=== PATIENT | male | born 1985 | race Caucasian/White ===

== ENCOUNTER 2023-10-30 10:38 | Inpatient (IN) | payer OTHER, SELFPAY ==
[2023-10-30 11:11] VITALS: BMI 38.9
[2023-10-30 11:12] VITALS: BP 128/85; PULSE 64; RESP 19; TEMP 35.7; O2SAT 97
[2023-10-30] MEDS: Nicotine Polacrilex 2 MG GUM 4 MG BUCCAL ×2 (12:01→19:29)
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
--- NOTE | 2023-10-30 12:11 | HO.PM.IMCN ---
History of Present Illness Data of Consult Service Date: 10/30/23 Primary Care Provider: Keena Allen NP HPI Reason for consult: routine medical eval 38 year old male with no chronic medical illness admitted from [facility] for management of depression and Suicidal ideation. He repots no know chronic medial issues and presently endorses no acute medical medical issues, he still feels depressed with SI. No fever or chills, no sob, no abd pain, no dizziness Review of Systems Review of Systems: Gen: no fever Resp: no sob, no cough CV: no chest, no LORA, no leg edema GI: No n/v, no abd pain Neuro: No confusion Yes all other systems are reviewed and are negative [facility] Medical History Major depression Social History Advance Directives: No Advance Directives Information Provided: Yes Meds Allergies Allergy/AdvReac Type Severity Reaction Status Date / Time No Known Allergies Allergy Verified 10/30/23 11:18 Active Medications: Current Medications Acetaminophen (Acetaminophen 325 Mg Tablet) 650 mg PO Q6H PRN PRN Reason: Headache/Pain Mild Scale (1-3) Al Hydroxide/Mg Hydroxide (Magnesium Hydrox/Alum Hydrox 30 Ml Oral.Susp) 30 ml PO Q6H PRN PRN Reason: Heartburn/Nausea Hydroxyzine HCl (Hydroxyzine Hcl 25 Mg Tablet) 25 mg PO Q6H PRN PRN Reason: Anxiety Magnesium Hydroxide (Milk Of Magnesia 30 Ml Oral.Susp) 30 ml PO DAILY PRN PRN Reason: Constipation Nicotine Polacrilex (Nicotine Polacrilex 2 Mg Gum) 4 mg BUCCAL Q2H PRN PRN Reason: Nicotine Cravings Last Admin: 10/30/23 12:01 Dose: 4 mg Trazodone HCl (Trazodone Hcl 50 Mg Tablet) 50 mg PO BEDTIME MRX1 PRN PRN Reason: Insomnia Home Medications Medication Instructions Recorded Confirmed Last Taken Type olopatadine 0.1 % eye drops 1 drp ophthalmic (eye) BID PRN Eye 10/30/23 10/30/23 Unknown History (Pataday Twice Daily Relief) Irritation Physical Exam Vital Signs and Narrative: Vital Signs: Last Vital Signs Temp 96.2 F L 10/30/23 11:12 Pulse 64 10/30/23 11:12 Resp 19 10/30/23 11:12 BP 128/85 10/30/23 11:12 Pulse Ox 97 10/30/23 11:12 O2 Del Method Room Air 10/30/23 11:12 BMI result Body Mass Index 38.9 Const: Other: Constitutional: Alert, in no distress, overweight. Mental Status: Oriented to person, place and time. Eyes: Pupils are equal, round and reactive to light. Ear, Nose and Throat: Oropharynx clear, mucous membranes moist. Ears and nose without deformities. Trachea midline. Respiratory: Clear to auscultation. No wheezing, rales or rhonchi. Cardiovascular: S1 S2 regular. No murmurs, rubs or gallops. Gastrointestinal: Abdomen soft, non-tender, non-distended. Normal bowel sounds.? Neurologic: Cranial nerves II-XII grossly intact. No focal neurological deficits. Moves all extremities spontaneously.? Skin: No rashes or lesions.? Musculoskeletal: No cyanosis or clubbing. Psychiatric: depression with si Assessment and Plan (1) Depression: Status: Acute Plan 38 year old male with no chronic medical illness admitted from [facility] for management of depression and Suicidal ideation. He repots no know chronic medial issues and presently endorses no acute medical medical issues, he still feels depressed with SI. No fever or chills, no sob, no abd pain, no dizziness. Plan: given no acute medical issues, will defer care to Psychiatry and will follow if a new issue arises
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
[2023-10-30] MEDS: hydrOXYzine HCL 25 MG TABLET PO (19:29)
[2023-10-30 19:40] VITALS: BP 178/90; PULSE 59; RESP 18; TEMP 36.2; O2SAT 98
[2023-10-30] MEDS: Acetaminophen 325 MG TABLET 650 MG PO (20:16)
[2023-10-30] MEDS: QUEtiapine Fumarate 100 MG TABLET PO (20:17)
[2023-10-30] MEDS: Prazosin HCL 1 MG CAPSULE PO (20:18)
[2023-10-31 07:45] VITALS: BP 129/66; PULSE 69; RESP 16; TEMP 36.2; O2SAT 97
[2023-10-31 08:17] LABS: Alanine Aminotransferase 25 U/L (0-40); Albumin Level 4.1 g/dL (3.5-5.0); Alkaline Phosphatase 53 U/L (39-117); Anion Gap 10 (12-20); Aspartate Amino Transferase 17 U/L (5-37); Bilirubin Total 0.4 mg/dL (0.0-1.0); Blood Urea Nitrogen 17 mg/dL (9-16); Calcium 9.6 mg/dL (8.4-10.2); Carbon Dioxide 28 mmol/L (22-29); Chloride 109 mmol/L (96-108); Cholesterol 132 mg/dL (<200); Creatinine Clr Calc Pharmacy 143.5; Estimated Glomerular Filt Rate > 60; Glucose Fasting 109 mg/dL (60-99); HDL Cholesterol 26 mg/dL (>40); LDL Cholesterol Calculated 81 mg/dL (<100); Potassium 4.3 mmol/L (3.3-5.1); Sodium 143 mmol/L (135-145); Total Protein 7.1 g/dL (6.5-8.0); Triglycerides 129 mg/dL (<150)
[2023-10-31 08:25] LABS: Estimated Average Glucose 111 mg/dL; Hemoglobin A1c % 5.5 % (<6.0)
[2023-10-31 08:34] LABS: Free T4 (Free Thyroxine) 0.97 ng/dL (0.71-1.85); Thyroid Stimulating Hormone 2.99 uIU/mL (0.32-4.0)
[2023-10-31] MEDS: DULoxetine HCl 30 MG CAPSULE.DR PO (08:47)
[2023-10-31 09:03] LABS: Folate 9.2 ng/mL (> or = 4.0); Vitamin B12 470 pg/mL (200-900)
[2023-10-31] MEDS: Acetaminophen 325 MG TABLET 650 MG PO (09:50)
[2023-10-31] MEDS: Nicotine Polacrilex 2 MG GUM 4 MG BUCCAL ×3 (09:51→20:31)
--- NOTE | 2023-10-31 10:53 | HO.PSYCHPN ---
Subjective Subjective Date of Service: 10/31/23 Reason For Visit: Major depressive disorder recurrent episode unspec Subjective Notes: Conditional Voluntary Interim History: Met with patient. Discussed with Nursing. Has been guarded and isolative at times. Today was able to express frustration regarding divorce being finalized 2 days ago. Upset regarding finances related to same, losing home and only having visitation for his 12 and 16-year-old, whom he was living with. Angry that he has been working 3 jobs to help pay all the bills and support his family. Reports finding it hard to process what has happened recently, but feeling supported by the staff and safe. Reports sleep has been much better in the hospital which is very unusual for him and he is thankful for this. Hopeful he can get support regarding potential housing resources. Reports he did speak with [facility] and upset and frustrated and feeling marginalized as he is not a woman or considered a family and therefore bottom of the list. Denies current SI. Reports hydroxyzine has been helpful for anxiety. Medication Compliance: Yes Side effects from medications: No Attending Groups: No Review of Systems Acute medical concerns: No Review of Systems Review of Systems Unremarkable Mental Status Exam Mental Status Exam Narrative: pleasant. Engaged. Hospital clothing. Fair hygiene. Eating and drinking well. Appropriate air frustrated in regarding recent stressors. Endorses feeling depressed. Denies current SI. No HI. No psychosis. Insight and judgment fair Diagnostics Vital Signs (24Hr): Vital Signs - 24 hr 10/30/23 11:12 10/30/23 19:40 10/31/23 07:45 Temperature 96.2 F L 97.1 F 97.1 F Pulse Rate 64 59 69 Respiratory Rate 19 18 16 Blood Pressure 128/85 178/90 H 129/66 Pulse Oximetry 97 98 97 Oxygen Delivery Method Room Air Room Air Room Air BMI result Body Mass Index 38.9 Labs 10/31/23 07:28 Labs: Laboratory Results - last 48 hr 10/31/23 07:28 Sodium 143 Potassium 4.3 Chloride 109 H Carbon Dioxide 28 Anion Gap 10 L BUN 17 H Creatinine 0.89 Estim Creat Clear Calc 143.5 Estimated GFR > 60 Fasting Glucose 109 H Estimat Average Glucose 111 Hemoglobin A1c % 5.5 Calcium 9.6 Total Bilirubin 0.4 AST 17 ALT 25 Alkaline Phosphatase 53 Total Protein 7.1 Albumin 4.1 Triglycerides 129 Cholesterol 132 LDL Cholesterol, Calc 81 HDL Cholesterol 26 L Vitamin B12 470 Folate 9.2 TSH 2.99 Free T4 0.97 Medications Medications Current Medications Acetaminophen (Acetaminophen 325 Mg Tablet) 650 mg PO Q6H PRN PRN Reason: Headache/Pain Mild Scale (1-3) Last Admin: 10/31/23 09:50 Dose: 650 mg Al Hydroxide/Mg Hydroxide (Magnesium Hydrox/Alum Hydrox 30 Ml Oral.Susp) 30 ml PO Q6H PRN PRN Reason: Heartburn/Nausea Capsaicin (Capsaicin 0.025% Cream 60 Gm Tube) 1 appl TOPICAL QID PRN; Protocol PRN Reason: Pain, Moderate(Pain Scale 4-6) Duloxetine HCl (Duloxetine Hcl 30 Mg Capsule.Dr) 30 mg PO DAILY GREG Last Admin: 10/31/23 08:47 Dose: 30 mg Hydroxyzine HCl (Hydroxyzine Hcl 25 Mg Tablet) 25 mg PO Q6H PRN PRN Reason: Anxiety Last Admin: 10/30/23 19:29 Dose: 25 mg Magnesium Hydroxide (Milk Of Magnesia 30 Ml Oral.Susp) 30 ml PO DAILY PRN PRN Reason: Constipation Nicotine Polacrilex (Nicotine Polacrilex 2 Mg Gum) 4 mg BUCCAL Q2H PRN PRN Reason: Nicotine Cravings Last Admin: 10/31/23 09:51 Dose: 4 mg Prazosin HCl (Prazosin Hcl 1 Mg Capsule) 2 mg PO ONCE ONE; Protocol Stop: 10/31/23 21:01 Prazosin HCl (Prazosin Hcl 1 Mg Capsule) 3 mg PO BEDTIME GREG; Protocol Quetiapine Fumarate (Quetiapine Fumarate 100 Mg Tablet) 100 mg PO BEDTIME GREG Last Admin: 10/30/23 20:17 Dose: 100 mg Quetiapine Fumarate (Quetiapine Fumarate 50 Mg Tablet) 50 mg PO BEDTIME PRN PRN Reason: insomnia Allergies Allergies Allergy/AdvReac Type Severity Reaction Status Date / Time No Known Allergies Allergy Verified 10/30/23 11:18 Assessment & Plan Assessment & Plan (1) Major depression: Status: Acute Code(s): F32.9 - Major depressive disorder, single episode, unspecified (2) PTSD (post-traumatic stress disorder): Status: Acute Code(s): F43.10 - Post-traumatic stress disorder, unspecified Plan start duloxetine for depression, anxiety, and any fringe benefit for neuropathic pain related to spinal injury. start prazosin, titrate to effective dose. seroquel 100 QHS until prazosin effective. 50 mg more PRN. 10/31/2023: No changes to current plan. Reason for continued inpatient stay Substantial Risk for: inability to function Time Spent With Patient Time: Total time managing care of this patient today ____ minutes.
[2023-10-31] MEDS: Capsaicin 0.025% Cream 60 GM TUBE 1 APPL TOPICAL (11:46)
[2023-10-31] MEDS: hydrOXYzine HCL 25 MG TABLET PO (14:56)
[2023-10-31 20:05] VITALS: BP 143/75; PULSE 98; RESP 18; TEMP 36.1; O2SAT 97
[2023-10-31] MEDS: Prazosin HCL 1 MG CAPSULE 2 MG PO (20:25)
[2023-10-31] MEDS: QUEtiapine Fumarate 100 MG TABLET PO (20:25)
[2023-10-31] MEDS: QUEtiapine Fumarate 50 MG TABLET PO (20:30)
[2023-11-01 07:30] VITALS: BP 108/57; PULSE 79; RESP 16; TEMP 36; O2SAT 94
[2023-11-01] MEDS: Nicotine Polacrilex 2 MG GUM 4 MG BUCCAL ×2 (08:46→20:14)
[2023-11-01] MEDS: DULoxetine HCl 30 MG CAPSULE.DR PO (08:46)
[2023-11-01] MEDS: hydrOXYzine HCL 25 MG TABLET PO (12:05)
--- NOTE | 2023-11-01 14:13 | HO.PSYCHPN ---
Subjective Subjective Date of Service: 11/01/23 Reason For Visit: Major depressive disorder recurrent episode unspec Subjective Notes: Conditional Voluntary Interim History: Met with patient. Discussed with Nursing. Feeling more hopeful today and less stressed. Sleep better but still broken. Still anxious with irritability. Enjoyed visit from daughter yesterday . Engaged in milieu and groups. Has been guarded and isolative at times. No SI today. Discussed increasing meds for anxiety and sleep. Medication Compliance: Yes Side effects from medications: No Attending Groups: Yes Review of Systems Acute medical concerns: No Review of Systems Review of Systems Unremarkable Yes all other systems are reviewed and are negative Mental Status Exam Mental Status Exam Narrative: pleasant. Engaged. Hospital clothing. Fair hygiene. Eating and drinking well. Brighter and less frustrated regarding recent stressors. Denies current SI. No HI. No psychosis. Insight and judgment fair Diagnostics Vital Signs (24Hr): Vital Signs - 24 hr 10/31/23 20:05 11/01/23 07:30 Temperature 96.9 F 96.8 F Pulse Rate 98 79 Respiratory Rate 18 16 Blood Pressure 143/75 H 108/57 L Pulse Oximetry 97 94 Oxygen Delivery Method Room Air Room Air BMI result Body Mass Index 38.9 Labs 10/31/23 07:28 Labs: Laboratory Results - last 48 hr 10/31/23 07:28 Sodium 143 Potassium 4.3 Chloride 109 H Carbon Dioxide 28 Anion Gap 10 L BUN 17 H Creatinine 0.89 Estim Creat Clear Calc 143.5 Estimated GFR > 60 Fasting Glucose 109 H Estimat Average Glucose 111 Hemoglobin A1c % 5.5 Calcium 9.6 Total Bilirubin 0.4 AST 17 ALT 25 Alkaline Phosphatase 53 Total Protein 7.1 Albumin 4.1 Triglycerides 129 Cholesterol 132 LDL Cholesterol, Calc 81 HDL Cholesterol 26 L Vitamin B12 470 Folate 9.2 TSH 2.99 Free T4 0.97 Medications Medications Current Medications Acetaminophen (Acetaminophen 325 Mg Tablet) 650 mg PO Q6H PRN PRN Reason: Headache/Pain Mild Scale (1-3) Last Admin: 10/31/23 09:50 Dose: 650 mg Al Hydroxide/Mg Hydroxide (Magnesium Hydrox/Alum Hydrox 30 Ml Oral.Susp) 30 ml PO Q6H PRN PRN Reason: Heartburn/Nausea Capsaicin (Capsaicin 0.025% Cream 60 Gm Tube) 1 appl TOPICAL QID PRN; Protocol PRN Reason: Pain, Moderate(Pain Scale 4-6) Last Admin: 10/31/23 11:46 Dose: 1 appl Duloxetine HCl (Duloxetine Hcl 30 Mg Capsule.Dr) 30 mg PO DAILY GREG Last Admin: 11/01/23 08:46 Dose: 30 mg Hydroxyzine HCl (Hydroxyzine Hcl 25 Mg Tablet) 25 mg PO Q6H PRN PRN Reason: Anxiety Last Admin: 11/01/23 12:05 Dose: 25 mg Magnesium Hydroxide (Milk Of Magnesia 30 Ml Oral.Susp) 30 ml PO DAILY PRN PRN Reason: Constipation Nicotine Polacrilex (Nicotine Polacrilex 2 Mg Gum) 4 mg BUCCAL Q2H PRN PRN Reason: Nicotine Cravings Last Admin: 11/01/23 08:46 Dose: 4 mg Prazosin HCl (Prazosin Hcl 1 Mg Capsule) 3 mg PO BEDTIME GREG; Protocol Quetiapine Fumarate (Quetiapine Fumarate 100 Mg Tablet) 100 mg PO BEDTIME GREG Last Admin: 10/31/23 20:25 Dose: 100 mg Quetiapine Fumarate (Quetiapine Fumarate 50 Mg Tablet) 50 mg PO BEDTIME PRN PRN Reason: insomnia Last Admin: 10/31/23 20:30 Dose: 50 mg Allergies Allergies Allergy/AdvReac Type Severity Reaction Status Date / Time No Known Allergies Allergy Verified 10/30/23 11:18 Assessment & Plan Assessment & Plan (1) Major depression: Status: Acute Code(s): F32.9 - Major depressive disorder, single episode, unspecified (2) PTSD (post-traumatic stress disorder): Status: Acute Code(s): F43.10 - Post-traumatic stress disorder, unspecified Plan start duloxetine for depression, anxiety, and any fringe benefit for neuropathic pain related to spinal injury. start prazosin, titrate to effective dose. seroquel 100 QHS until prazosin effective. 50 mg more PRN. 10/31/2023: No changes to current plan. 10/31- increase prazosin and seroquel Reason for continued inpatient stay Substantial Risk for: inability to function and rapid decompensation Time Spent With Patient Time: Total time managing care of this patient today ____ minutes.
[2023-11-01 19:40] VITALS: BP 161/92; PULSE 100; RESP 18; TEMP 36.7; O2SAT 96
[2023-11-01] MEDS: QUEtiapine Fumarate 50 MG TABLET 150 MG PO (20:13)
[2023-11-01] MEDS: Prazosin HCL 5 MG CAPSULE PO (20:13)
[2023-11-01 21:25] VITALS: BP 147/84; PULSE 130
[2023-11-01 21:30] VITALS: PULSE 125
[2023-11-01] MEDS: hydrOXYzine HCL 50 MG TABLET PO (21:31)
[2023-11-01] MEDS: QUEtiapine Fumarate 50 MG TABLET PO (23:48)
[2023-11-02 08:32] VITALS: BP 165/92; PULSE 108; RESP 16; TEMP 36.8; O2SAT 99
[2023-11-02] MEDS: DULoxetine HCl 30 MG CAPSULE.DR PO (09:16)
[2023-11-02] MEDS: hydrOXYzine HCL 50 MG TABLET PO ×2 (09:18→15:45)
[2023-11-02] MEDS: Nicotine Polacrilex 2 MG GUM 4 MG BUCCAL ×2 (14:32→23:04)
[2023-11-02] MEDS: Prazosin HCL 1 MG CAPSULE PO (15:43)
--- NOTE | 2023-11-02 17:20 | HO.PSYCHPN ---
Subjective Subjective Date of Service: 11/02/23 Reason For Visit: Major depressive disorder recurrent episode unspec Interim History: up ith nightmares repeatedly. hypertensive and anxious in the day. agrees to increase HS prazosin to 6 mg and start prazosin 1 mg daily and 1 mg daily at 3 pm. per staff, had a good visit with his daughter. dep 4, anx 5. HR 130 briefly yesterday. slept overnight. Mental Status Exam Mental Status Exam Narrative: pleasant. Engaged. Hospital clothing. Fair hygiene. Eating and drinking well. Brighter and less frustrated regarding recent stressors. Denies current SI. No HI. No psychosis. Insight and judgment fair Diagnostics Vital Signs (24Hr): Vital Signs - 24 hr 11/01/23 19:40 11/01/23 21:25 11/01/23 21:30 Temperature 98.0 F Pulse Rate 100 130 H 125 H Respiratory Rate 18 Blood Pressure 161/92 H 147/84 H Pulse Oximetry 96 Oxygen Delivery Method Room Air 11/02/23 08:32 Temperature 98.2 F Pulse Rate 108 H Respiratory Rate 16 Blood Pressure 165/92 H Pulse Oximetry 99 Oxygen Delivery Method Room Air BMI result Body Mass Index 38.9 Labs 10/31/23 07:28 Medications Medications Current Medications Acetaminophen (Acetaminophen 325 Mg Tablet) 650 mg PO Q6H PRN PRN Reason: Headache/Pain Mild Scale (1-3) Last Admin: 10/31/23 09:50 Dose: 650 mg Al Hydroxide/Mg Hydroxide (Magnesium Hydrox/Alum Hydrox 30 Ml Oral.Susp) 30 ml PO Q6H PRN PRN Reason: Heartburn/Nausea Capsaicin (Capsaicin 0.025% Cream 60 Gm Tube) 1 appl TOPICAL QID PRN; Protocol PRN Reason: Pain, Moderate(Pain Scale 4-6) Last Admin: 10/31/23 11:46 Dose: 1 appl Duloxetine HCl (Duloxetine Hcl 30 Mg Capsule.Dr) 30 mg PO DAILY GREG Last Admin: 11/02/23 09:16 Dose: 30 mg Hydroxyzine HCl (Hydroxyzine Hcl 50 Mg Tablet) 50 mg PO Q6H PRN PRN Reason: Anxiety Last Admin: 11/02/23 15:45 Dose: 50 mg Magnesium Hydroxide (Milk Of Magnesia 30 Ml Oral.Susp) 30 ml PO DAILY PRN PRN Reason: Constipation Nicotine Polacrilex (Nicotine Polacrilex 2 Mg Gum) 4 mg BUCCAL Q2H PRN PRN Reason: Nicotine Cravings Last Admin: 11/02/23 14:32 Dose: 4 mg Prazosin HCl (Prazosin Hcl 1 Mg Capsule) 6 mg PO BEDTIME GREG; Protocol Prazosin HCl (Prazosin Hcl 1 Mg Capsule) 1 mg PO BID@0900,1500 GREG; Protocol Last Admin: 11/02/23 15:43 Dose: 1 mg Quetiapine Fumarate (Quetiapine Fumarate 50 Mg Tablet) 50 mg PO BEDTIME PRN PRN Reason: insomnia Last Admin: 11/01/23 23:48 Dose: 50 mg Quetiapine Fumarate (Quetiapine Fumarate 50 Mg Tablet) 150 mg PO BEDTIME GREG Last Admin: 11/01/23 20:13 Dose: 150 mg Allergies Allergies Allergy/AdvReac Type Severity Reaction Status Date / Time No Known Allergies Allergy Verified 10/30/23 11:18 Assessment & Plan Assessment & Plan (1) Major depression: Status: Acute Code(s): F32.9 - Major depressive disorder, single episode, unspecified (2) PTSD (post-traumatic stress disorder): Status: Acute Code(s): F43.10 - Post-traumatic stress disorder, unspecified Plan start duloxetine for depression, anxiety, and any fringe benefit for neuropathic pain related to spinal injury. start prazosin, titrate to effective dose. seroquel 100 QHS until prazosin effective. 50 mg more PRN. 10/31/2023: No changes to current plan. 10/31- increase prazosin and seroquel 11/01: increase prazosin from 5 mg QHS to as of this afternoon. targeting anxiety, HTN, and nightmares/insomnia. Reason for continued inpatient stay Substantial Risk for: harm to self, harm to others, inability to function and rapid decompensation Time Spent With Patient Time: Total time managing care of this patient today ___25_ minutes.
[2023-11-02] MEDS: Capsaicin 0.025% Cream 60 GM TUBE 1 APPL TOPICAL (18:56)
[2023-11-02 22:47] VITALS: BP 134/83; PULSE 104; RESP 18; O2SAT 97
[2023-11-02] MEDS: Prazosin HCL 1 MG CAPSULE 6 MG PO (23:00)
[2023-11-02] MEDS: QUEtiapine Fumarate 50 MG TABLET 150 MG PO (23:01)
[2023-11-03] MEDS: hydrOXYzine HCL 50 MG TABLET PO ×2 (00:26→11:03)
[2023-11-03] MEDS: QUEtiapine Fumarate 50 MG TABLET PO ×2 (00:27→22:44)
[2023-11-03 08:18] VITALS: BP 142/75; PULSE 97; RESP 18; TEMP 36.3; O2SAT 97
[2023-11-03] MEDS: DULoxetine HCl 30 MG CAPSULE.DR PO (08:45)
[2023-11-03] MEDS: Prazosin HCL 1 MG CAPSULE PO ×2 (08:45→14:00)
[2023-11-03] MEDS: Nicotine Polacrilex 2 MG GUM 4 MG BUCCAL ×2 (09:50→14:00)
[2023-11-03 14:00] VITALS: BP 131/80; PULSE 105; RESP 18
--- NOTE | 2023-11-03 15:55 | HO.PSYCHPN ---
Subjective Subjective Date of Service: 11/03/23 Reason For Visit: Major depressive disorder recurrent episode unspec Interim History: continues with nightmares and insomnia. agrees to increase prazosin to 8 mg. planning to return to the house he shares with his , temporarily, then move out. per staff, dep/anx 10. labile. visible. taking meds. attending groups. slept about 6 hours. Mental Status Exam Mental Status Exam Narrative: pleasant. Engaged. Hospital clothing. Fair hygiene. Eating and drinking well. Brighter and less frustrated regarding recent stressors. no SI/HI/AVH expressed. Insight and judgment fair Diagnostics Vital Signs (24Hr): Vital Signs - 24 hr 11/02/23 22:47 11/03/23 08:18 11/03/23 14:00 Temperature 97.3 F Pulse Rate 104 H 97 105 H Respiratory Rate 18 18 18 Blood Pressure 134/83 142/75 H 131/80 Pulse Oximetry 97 97 Oxygen Delivery Method Room Air Room Air BMI result Body Mass Index 38.9 Labs 10/31/23 07:28 Medications Medications Current Medications Acetaminophen (Acetaminophen 325 Mg Tablet) 650 mg PO Q6H PRN PRN Reason: Headache/Pain Mild Scale (1-3) Last Admin: 10/31/23 09:50 Dose: 650 mg Al Hydroxide/Mg Hydroxide (Magnesium Hydrox/Alum Hydrox 30 Ml Oral.Susp) 30 ml PO Q6H PRN PRN Reason: Heartburn/Nausea Capsaicin (Capsaicin 0.025% Cream 60 Gm Tube) 1 appl TOPICAL QID PRN; Protocol PRN Reason: Pain, Moderate(Pain Scale 4-6) Last Admin: 11/02/23 18:56 Dose: 1 appl Duloxetine HCl (Duloxetine Hcl 30 Mg Capsule.Dr) 30 mg PO DAILY GREG Last Admin: 11/03/23 08:45 Dose: 30 mg Hydroxyzine HCl (Hydroxyzine Hcl 50 Mg Tablet) 50 mg PO Q6H PRN PRN Reason: Anxiety Last Admin: 11/03/23 11:03 Dose: 50 mg Magnesium Hydroxide (Milk Of Magnesia 30 Ml Oral.Susp) 30 ml PO DAILY PRN PRN Reason: Constipation Nicotine Polacrilex (Nicotine Polacrilex 2 Mg Gum) 4 mg BUCCAL Q2H PRN PRN Reason: Nicotine Cravings Last Admin: 11/03/23 14:00 Dose: 4 mg Prazosin HCl (Prazosin Hcl 1 Mg Capsule) 1 mg PO BID@0900,1500 GREG; Protocol Last Admin: 11/03/23 14:00 Dose: 1 mg Prazosin HCl (Prazosin Hcl 1 Mg Capsule) 8 mg PO BEDTIME GREG; Protocol Quetiapine Fumarate (Quetiapine Fumarate 50 Mg Tablet) 50 mg PO BEDTIME PRN PRN Reason: insomnia Last Admin: 11/03/23 00:27 Dose: 50 mg Quetiapine Fumarate (Quetiapine Fumarate 50 Mg Tablet) 150 mg PO BEDTIME GREG Last Admin: 11/02/23 23:01 Dose: 150 mg Allergies Allergies Allergy/AdvReac Type Severity Reaction Status Date / Time No Known Allergies Allergy Verified 10/30/23 11:18 Assessment & Plan Assessment & Plan (1) Major depression: Status: Acute Code(s): F32.9 - Major depressive disorder, single episode, unspecified (2) PTSD (post-traumatic stress disorder): Status: Acute Code(s): F43.10 - Post-traumatic stress disorder, unspecified Plan start duloxetine for depression, anxiety, and any fringe benefit for neuropathic pain related to spinal injury. start prazosin, titrate to effective dose. seroquel 100 QHS until prazosin effective. 50 mg more PRN. 10/31/2023: No changes to current plan. 10/31- increase prazosin and seroquel 11/01: increase prazosin from 5 mg QHS to as of this afternoon. targeting anxiety, HTN, and nightmares/insomnia. 11/02: increase prazosin from to due to nightmares/insomnia. daytime doses reported to be helpful for anxiety. Reason for continued inpatient stay Substantial Risk for: harm to self, inability to function and rapid decompensation Time Spent With Patient Time: Total time managing care of this patient today __25__ minutes.
[2023-11-03 21:30] VITALS: BP 153/77; PULSE 104; RESP 18; TEMP -13.6; TEMP 7.5; O2SAT 97
[2023-11-03] MEDS: QUEtiapine Fumarate 50 MG TABLET 150 MG PO (21:40)
[2023-11-03] MEDS: Prazosin HCL 1 MG CAPSULE 8 MG PO (21:40)
[2023-11-04 08:51] VITALS: BP 127/77; PULSE 103; RESP 16; TEMP 36.3; O2SAT 96
[2023-11-04] MEDS: DULoxetine HCl 30 MG CAPSULE.DR PO (09:04)
[2023-11-04] MEDS: Prazosin HCL 1 MG CAPSULE PO ×2 (09:04→15:33)
[2023-11-04] MEDS: hydrOXYzine HCL 50 MG TABLET PO (10:03)
[2023-11-04] MEDS: Nicotine Polacrilex 2 MG GUM 4 MG BUCCAL ×2 (10:04→17:48)
[2023-11-04 12:53] LABS: Influenza A PCR NEGATIVE (Negative); Influenza B PCR NEGATIVE (Negative); Resp Syncy Virus RNA Qual PCR NEGATIVE (Negative); SARS COV2 PCR INHOUSE NEGATIVE (Negative)
[2023-11-04 15:34] VITALS: BP 129/82; PULSE 95; RESP 18
--- NOTE | 2023-11-04 15:42 | HO.PSYCHPN ---
Subjective Subjective Date of Service: 11/04/23 Reason For Visit: Major depressive disorder recurrent episode unspec Interim History: calm, cooperative. reports daytime anxiety improved with meds, declines any changes there. reports still nightmares and insomnia in second half of night but not first. agreeable to increase prazosin to 10 mg QHS as of tonight. per staff, bright, social. playing cards. dep/anx. visible. watching TV. slept about 7 hours. Mental Status Exam Mental Status Exam Narrative: pleasant. Engaged. Hospital clothing. Fair hygiene. Eating and drinking well. Brighter and less frustrated regarding recent stressors. no SI/HI/AVH expressed. Insight and judgment fair Diagnostics Vital Signs (24Hr): Vital Signs - 24 hr 11/03/23 21:30 11/04/23 08:51 11/04/23 15:34 Temperature 7.5 F L 97.3 F Pulse Rate 104 H 103 H 95 Respiratory Rate 18 16 18 Blood Pressure 153/77 H 127/77 129/82 Pulse Oximetry 97 96 Oxygen Delivery Method Room Air Room Air BMI result Body Mass Index 38.9 Labs 10/31/23 07:28 Labs: Laboratory Results - last 48 hr 11/04/23 11:31 Influenza Type A (PCR) NEGATIVE Influenza Type B (PCR) NEGATIVE RSV RNA Qual (PCR) NEGATIVE SARS-CoV-2 RNA (RT-PCR) NEGATIVE Medications Medications Current Medications Acetaminophen (Acetaminophen 325 Mg Tablet) 650 mg PO Q6H PRN PRN Reason: Headache/Pain Mild Scale (1-3) Last Admin: 10/31/23 09:50 Dose: 650 mg Al Hydroxide/Mg Hydroxide (Magnesium Hydrox/Alum Hydrox 30 Ml Oral.Susp) 30 ml PO Q6H PRN PRN Reason: Heartburn/Nausea Capsaicin (Capsaicin 0.025% Cream 60 Gm Tube) 1 appl TOPICAL QID PRN; Protocol PRN Reason: Pain, Moderate(Pain Scale 4-6) Last Admin: 11/02/23 18:56 Dose: 1 appl Duloxetine HCl (Duloxetine Hcl 30 Mg Capsule.Dr) 30 mg PO DAILY GREG Last Admin: 11/04/23 09:04 Dose: 30 mg Hydroxyzine HCl (Hydroxyzine Hcl 50 Mg Tablet) 50 mg PO Q6H PRN PRN Reason: Anxiety Last Admin: 11/04/23 10:03 Dose: 50 mg Magnesium Hydroxide (Milk Of Magnesia 30 Ml Oral.Susp) 30 ml PO DAILY PRN PRN Reason: Constipation Nicotine Polacrilex (Nicotine Polacrilex 2 Mg Gum) 4 mg BUCCAL Q2H PRN PRN Reason: Nicotine Cravings Last Admin: 11/04/23 10:04 Dose: 4 mg Prazosin HCl (Prazosin Hcl 1 Mg Capsule) 1 mg PO BID@0900,1500 GREG; Protocol Last Admin: 11/04/23 15:33 Dose: 1 mg Prazosin HCl (Prazosin Hcl 5 Mg Capsule) 10 mg PO BEDTIME GREG; Protocol Quetiapine Fumarate (Quetiapine Fumarate 50 Mg Tablet) 50 mg PO BEDTIME PRN PRN Reason: insomnia Last Admin: 11/03/23 22:44 Dose: 50 mg Quetiapine Fumarate (Quetiapine Fumarate 50 Mg Tablet) 150 mg PO BEDTIME GREG Last Admin: 11/03/23 21:40 Dose: 150 mg Allergies Allergies Allergy/AdvReac Type Severity Reaction Status Date / Time No Known Allergies Allergy Verified 10/30/23 11:18 Assessment & Plan Assessment & Plan (1) Major depression: Status: Acute Code(s): F32.9 - Major depressive disorder, single episode, unspecified (2) PTSD (post-traumatic stress disorder): Status: Acute Code(s): F43.10 - Post-traumatic stress disorder, unspecified Plan start duloxetine for depression, anxiety, and any fringe benefit for neuropathic pain related to spinal injury. start prazosin, titrate to effective dose. seroquel 100 QHS until prazosin effective. 50 mg more PRN. 10/31/2023: No changes to current plan. 10/31- increase prazosin and seroquel 11/01: increase prazosin from 5 mg QHS to as of this afternoon. targeting anxiety, HTN, and nightmares/insomnia. 11/02: increase prazosin from to due to nightmares/insomnia. daytime doses reported to be helpful for anxiety. 11/03: daytime anxiety improved. nightmares continue. increase HS prazosin to 10 mg. otherwise continue current mgmt. Reason for continued inpatient stay Substantial Risk for: harm to self, harm to others, inability to function and rapid decompensation Time Spent With Patient Time: Total time managing care of this patient today __25__ minutes.
[2023-11-04 19:25] VITALS: BP 156/86; PULSE 98; RESP 18; TEMP 37.1; O2SAT 98
[2023-11-04] MEDS: Prazosin HCL 5 MG CAPSULE 10 MG PO (21:35)
[2023-11-04] MEDS: QUEtiapine Fumarate 50 MG TABLET 150 MG PO (21:36)
[2023-11-04] MEDS: QUEtiapine Fumarate 50 MG TABLET PO (23:20)
[2023-11-05 07:00] VITALS: BMI 39.8
[2023-11-05 07:50] VITALS: BP 135/84; PULSE 87; RESP 16; TEMP 36.4; O2SAT 96
[2023-11-05] MEDS: Prazosin HCL 1 MG CAPSULE PO ×2 (08:46→15:14)
[2023-11-05] MEDS: DULoxetine HCl 30 MG CAPSULE.DR PO (08:46)
[2023-11-05] MEDS: Nicotine Polacrilex 2 MG GUM 4 MG BUCCAL ×2 (11:56→19:19)
[2023-11-05] MEDS: hydrOXYzine HCL 50 MG TABLET PO ×2 (15:14→21:43)
[2023-11-05 15:16] VITALS: BP 143/89; PULSE 104
--- NOTE | 2023-11-05 15:48 | HO.PSYCHPN ---
Subjective Subjective Date of Service: 11/05/23 Reason For Visit: Major depressive disorder recurrent episode unspec Interim History: calm, cooperative. slept well, few/minimal nightmares. no sife effects from medications. increase cymbalta to 60 as per dosing guidelines. per staff, signed 3-day notice, up thursday. little dep/anx. attended 1 group. tending to ADLs. taking medications. social. visible. pleasant. slept about 6 hours. D/C thursday. Mental Status Exam Mental Status Exam Narrative: pleasant. Engaged. Hospital clothing. Fair hygiene. Eating and drinking well. Brighter and less frustrated regarding recent stressors. no SI/HI/AVH expressed. Insight and judgment fair Diagnostics Vital Signs (24Hr): Vital Signs - 24 hr 11/04/23 19:25 11/05/23 07:50 11/05/23 15:16 Temperature 98.7 F 97.5 F Pulse Rate 98 87 104 H Respiratory Rate 18 16 Blood Pressure 156/86 H 135/84 143/89 H Pulse Oximetry 98 96 Oxygen Delivery Method Room Air Room Air BMI result Body Mass Index 39.8 Labs 10/31/23 07:28 Labs: Laboratory Results - last 48 hr 11/04/23 11:31 Influenza Type A (PCR) NEGATIVE Influenza Type B (PCR) NEGATIVE RSV RNA Qual (PCR) NEGATIVE SARS-CoV-2 RNA (RT-PCR) NEGATIVE Medications Medications Current Medications Acetaminophen (Acetaminophen 325 Mg Tablet) 650 mg PO Q6H PRN PRN Reason: Headache/Pain Mild Scale (1-3) Last Admin: 10/31/23 09:50 Dose: 650 mg Al Hydroxide/Mg Hydroxide (Magnesium Hydrox/Alum Hydrox 30 Ml Oral.Susp) 30 ml PO Q6H PRN PRN Reason: Heartburn/Nausea Capsaicin (Capsaicin 0.025% Cream 60 Gm Tube) 1 appl TOPICAL QID PRN; Protocol PRN Reason: Pain, Moderate(Pain Scale 4-6) Last Admin: 11/02/23 18:56 Dose: 1 appl Duloxetine HCl (Duloxetine Hcl 60 Mg Capsule.Dr) 60 mg PO DAILY GREG Hydroxyzine HCl (Hydroxyzine Hcl 50 Mg Tablet) 50 mg PO Q6H PRN PRN Reason: Anxiety Last Admin: 11/05/23 15:14 Dose: 50 mg Magnesium Hydroxide (Milk Of Magnesia 30 Ml Oral.Susp) 30 ml PO DAILY PRN PRN Reason: Constipation Nicotine Polacrilex (Nicotine Polacrilex 2 Mg Gum) 4 mg BUCCAL Q2H PRN PRN Reason: Nicotine Cravings Last Admin: 11/05/23 11:56 Dose: 4 mg Prazosin HCl (Prazosin Hcl 1 Mg Capsule) 1 mg PO BID@0900,1500 GREG; Protocol Last Admin: 11/05/23 15:14 Dose: 1 mg Prazosin HCl (Prazosin Hcl 5 Mg Capsule) 10 mg PO BEDTIME GREG; Protocol Last Admin: 11/04/23 21:35 Dose: 10 mg Quetiapine Fumarate (Quetiapine Fumarate 50 Mg Tablet) 50 mg PO BEDTIME PRN PRN Reason: insomnia Last Admin: 11/04/23 23:20 Dose: 50 mg Quetiapine Fumarate (Quetiapine Fumarate 200 Mg Tablet) 200 mg PO BEDTIME GREG Allergies Allergies Allergy/AdvReac Type Severity Reaction Status Date / Time No Known Allergies Allergy Verified 10/30/23 11:18 Assessment & Plan Assessment & Plan (1) Major depression: Status: Acute Code(s): F32.9 - Major depressive disorder, single episode, unspecified (2) PTSD (post-traumatic stress disorder): Status: Acute Code(s): F43.10 - Post-traumatic stress disorder, unspecified Plan start duloxetine for depression, anxiety, and any fringe benefit for neuropathic pain related to spinal injury. start prazosin, titrate to effective dose. seroquel 100 QHS until prazosin effective. 50 mg more PRN. 10/31/2023: No changes to current plan. 10/31- increase prazosin and seroquel 11/01: increase prazosin from 5 mg QHS to 1//6 as of this afternoon. targeting anxiety, HTN, and nightmares/insomnia. 11/02: increase prazosin from to due to nightmares/insomnia. daytime doses reported to be helpful for anxiety. 11/03: daytime anxiety improved. nightmares continue. increase HS prazosin to 10 mg. otherwise continue current mgmt. 11/04: slept well, few/minimal nightmares. increase duloxetine to 60 mg for dep/anx. otherwise continue current mgmt. 3-day up thursday, planning to discharge thursday. Reason for continued inpatient stay Substantial Risk for: harm to self, harm to others, inability to function and rapid decompensation Time Spent With Patient Time: Total time managing care of this patient today __25__ minutes.
[2023-11-05 21:30] VITALS: BP 150/80; PULSE 95; RESP 18; TEMP 36.6; O2SAT 97
[2023-11-05] MEDS: Prazosin HCL 5 MG CAPSULE 10 MG PO (21:42)
[2023-11-05] MEDS: QUEtiapine Fumarate 50 MG TABLET PO (21:43)
[2023-11-05] MEDS: QUEtiapine Fumarate 200 MG TABLET PO (21:43)
[2023-11-06 08:05] VITALS: BP 129/74; PULSE 86; RESP 16; TEMP 36.2; O2SAT 96
[2023-11-06] MEDS: DULoxetine HCl 60 MG CAPSULE.DR PO (09:03)
[2023-11-06] MEDS: Prazosin HCL 1 MG CAPSULE PO ×2 (09:03→14:54)
[2023-11-06] MEDS: Nicotine Polacrilex 2 MG GUM 4 MG BUCCAL ×2 (10:05→14:54)
[2023-11-06 10:14] LABS: COVID-19 Test Negative (Negative); IDNOW Serial# 08D9AD1C
[2023-11-06] MEDS: hydrOXYzine HCL 50 MG TABLET PO (12:08)
[2023-11-06] MEDS: LORazepam 1 MG TABLET 2 MG PO (13:58)
[2023-11-06 15:30] VITALS: BP 148/84; PULSE 118; O2SAT 94
--- NOTE | 2023-11-06 16:05 | P.PNPSI_ITS ---
Subjective Subjective Date of Service: 11/06/23 Reason For Visit: Major depressive disorder recurrent episode unspec Interim History: reports slept very well. no issues. would like to keep regimen as it is. per staff, 3-day up thursday, will DC then. slept 8 hours. anxious. Mental Status Exam Mental Status Exam Narrative: pleasant. Engaged. Hospital clothing. Fair hygiene. Eating and drinking well. Brighter and less frustrated regarding recent stressors. no SI/HI/AVH expressed. Insight and judgment fair Diagnostics Vital Signs (24Hr): Vital Signs - 24 hr 11/05/23 21:30 11/06/23 08:05 Temperature 97.8 F 97.1 F Pulse Rate 95 86 Respiratory Rate 18 16 Blood Pressure 150/80 H 129/74 Pulse Oximetry 97 96 Oxygen Delivery Method Room Air Room Air BMI result Body Mass Index 39.8 Labs 10/31/23 07:28 Labs: Laboratory Results - last 48 hr 11/06/23 09:10 COVID-19 ([facility]) Negative COVID-19 Clin Com See Note Medications Medications Current Medications Acetaminophen (Acetaminophen 325 Mg Tablet) 650 mg PO Q6H PRN PRN Reason: Headache/Pain Mild Scale (1-3) Last Admin: 10/31/23 09:50 Dose: 650 mg Al Hydroxide/Mg Hydroxide (Magnesium Hydrox/Alum Hydrox 30 Ml Oral.Susp) 30 ml PO Q6H PRN PRN Reason: Heartburn/Nausea Capsaicin (Capsaicin 0.025% Cream 60 Gm Tube) 1 appl TOPICAL QID PRN; Protocol PRN Reason: Pain, Moderate(Pain Scale 4-6) Last Admin: 11/02/23 18:56 Dose: 1 appl Duloxetine HCl (Duloxetine Hcl 60 Mg Capsule.Dr) 60 mg PO DAILY GREG Last Admin: 11/06/23 09:03 Dose: 60 mg Hydroxyzine HCl (Hydroxyzine Hcl 50 Mg Tablet) 50 mg PO Q6H PRN PRN Reason: Anxiety Last Admin: 11/06/23 12:08 Dose: 50 mg Magnesium Hydroxide (Milk Of Magnesia 30 Ml Oral.Susp) 30 ml PO DAILY PRN PRN Reason: Constipation Nicotine Polacrilex (Nicotine Polacrilex 2 Mg Gum) 4 mg BUCCAL Q2H PRN PRN Reason: Nicotine Cravings Last Admin: 11/06/23 14:54 Dose: 4 mg Prazosin HCl (Prazosin Hcl 1 Mg Capsule) 1 mg PO BID@0900,1500 [facility]; Protocol Last Admin: 11/06/23 14:54 Dose: 1 mg Prazosin HCl (Prazosin Hcl 5 Mg Capsule) 10 mg PO BEDTIME GREG; Protocol Last Admin: 11/05/23 21:42 Dose: 10 mg Quetiapine Fumarate (Quetiapine Fumarate 50 Mg Tablet) 50 mg PO BEDTIME PRN PRN Reason: insomnia Last Admin: 11/05/23 21:43 Dose: 50 mg Quetiapine Fumarate (Quetiapine Fumarate 200 Mg Tablet) 200 mg PO BEDTIME GREG Last Admin: 11/05/23 21:43 Dose: 200 mg Allergies Allergies Allergy/AdvReac Type Severity Reaction Status Date / Time No Known Allergies Allergy Verified 10/30/23 11:18 Assessment & Plan Assessment & Plan (1) Major depression: Status: Acute Code(s): F32.9 - Major depressive disorder, single episode, unspecified (2) PTSD (post-traumatic stress disorder): Status: Acute Code(s): F43.10 - Post-traumatic stress disorder, unspecified Plan start duloxetine for depression, anxiety, and any fringe benefit for neuropathic pain related to spinal injury. start prazosin, titrate to effective dose. seroquel 100 QHS until prazosin effective. 50 mg more PRN. 10/31/2023: No changes to current plan. 10/31- increase prazosin and seroquel 11/01: increase prazosin from 5 mg QHS to 1/6 as of this afternoon. targeting anxiety, HTN, and nightmares/insomnia. 11/02: increase prazosin from to due to nightmares/insomnia. daytime doses reported to be helpful for anxiety. 11/03: daytime anxiety improved. nightmares continue. increase HS prazosin to 10 mg. otherwise continue current mgmt. 11/04: slept well, few/minimal nightmares. increase duloxetine to 60 mg for dep/anx. otherwise continue current mgmt. 3-day up thursday, planning to discharge thursday. 11/05: slept well, no c/o nightmares. continue current mgmt. DC thursday, upon 3-day notice expiry. Reason for continued inpatient stay Substantial Risk for: harm to self, harm to others, inability to function and rapid decompensation Time Spent With Patient Time: Total time managing care of this patient today __25__ minutes.
[2023-11-06 19:50] VITALS: BP 141/82; PULSE 114; RESP 18; TEMP 36.8; O2SAT 97
[2023-11-06] MEDS: Prazosin HCL 5 MG CAPSULE 10 MG PO (21:29)
[2023-11-06] MEDS: QUEtiapine Fumarate 200 MG TABLET PO (21:29)
[2023-11-06 21:30] VITALS: BP 153/88; PULSE 104
[2023-11-06] MEDS: QUEtiapine Fumarate 50 MG TABLET PO (22:44)
[2023-11-07 06:00] VITALS: BP 128/61; PULSE 83; RESP 14; TEMP 36.4; O2SAT 98
[2023-11-07] MEDS: Prazosin HCL 1 MG CAPSULE PO ×2 (08:40→14:33)
[2023-11-07] MEDS: DULoxetine HCl 60 MG CAPSULE.DR PO (08:40)
[2023-11-07 08:50] VITALS: BP 145/97; PULSE 115; RESP 18; TEMP 36.6; O2SAT 97
[2023-11-07] MEDS: Nicotine Polacrilex 2 MG GUM 4 MG BUCCAL ×3 (11:10→21:01)
[2023-11-07] MEDS: LORazepam 1 MG TABLET 2 MG PO (11:32)
--- NOTE | 2023-11-07 11:50 | HO.PSYCHPN ---
Subjective Subjective Date of Service: 11/07/23 Reason For Visit: Major depressive disorder recurrent episode unspec Subjective Notes: Conditional Voluntary Interim History: Pt reports doing well. He reports mood is better. Peer has been instigating pt, and pt has been trying to stay away from this other pt. He denies SI/HI. No psychosis or delusions. No behavioral concern. Review of Systems Review of Systems Unremarkable Yes all other systems are reviewed and are negative Mental Status Exam Mental Status Exam Narrative: pleasant. Engaged. Hospital clothing. Fair hygiene. Eating and drinking well. Brighter and less frustrated regarding recent stressors. no SI/HI/AVH expressed. Insight and judgment fair Diagnostics Vital Signs (24Hr): Vital Signs - 24 hr 11/06/23 15:30 11/06/23 19:50 11/06/23 21:30 Temperature 98.2 F Pulse Rate 118 H 114 H 104 H Respiratory Rate 18 Blood Pressure 148/84 H 141/82 H 153/88 H Pulse Oximetry 94 97 Oxygen Delivery Method Room Air Room Air 11/07/23 06:00 Temperature 97.5 F Pulse Rate 83 Respiratory Rate 14 Blood Pressure 128/61 Pulse Oximetry 98 Oxygen Delivery Method Room Air BMI result Body Mass Index 39.8 Labs 10/31/23 07:28 Labs: Laboratory Results - last 48 hr 11/06/23 09:10 COVID-19 ([facility]) Negative COVID-19 Clin Com See Note Medications Medications Current Medications Acetaminophen (Acetaminophen 325 Mg Tablet) 650 mg PO Q6H PRN PRN Reason: Headache/Pain Mild Scale (1-3) Last Admin: 10/31/23 09:50 Dose: 650 mg Al Hydroxide/Mg Hydroxide (Magnesium Hydrox/Alum Hydrox 30 Ml Oral.Susp) 30 ml PO Q6H PRN PRN Reason: Heartburn/Nausea Capsaicin (Capsaicin 0.025% Cream 60 Gm Tube) 1 appl TOPICAL QID PRN; Protocol PRN Reason: Pain, Moderate(Pain Scale 4-6) Last Admin: 11/02/23 18:56 Dose: 1 appl Duloxetine HCl (Duloxetine Hcl 60 Mg Capsule.Dr) 60 mg PO DAILY GREG Last Admin: 11/07/23 08:40 Dose: 60 mg Hydroxyzine HCl (Hydroxyzine Hcl 50 Mg Tablet) 50 mg PO Q6H PRN PRN Reason: Anxiety Last Admin: 11/06/23 12:08 Dose: 50 mg Magnesium Hydroxide (Milk Of Magnesia 30 Ml Oral.Susp) 30 ml PO DAILY PRN PRN Reason: Constipation Nicotine Polacrilex (Nicotine Polacrilex 2 Mg Gum) 4 mg BUCCAL Q2H PRN PRN Reason: Nicotine Cravings Last Admin: 11/07/23 11:10 Dose: 4 mg Prazosin HCl (Prazosin Hcl 1 Mg Capsule) 1 mg PO BID@0900,1500 GREG; Protocol Last Admin: 11/07/23 08:40 Dose: 1 mg Prazosin HCl (Prazosin Hcl 5 Mg Capsule) 10 mg PO BEDTIME GREG; Protocol Last Admin: 11/06/23 21:29 Dose: 10 mg Quetiapine Fumarate (Quetiapine Fumarate 50 Mg Tablet) 50 mg PO BEDTIME PRN PRN Reason: insomnia Last Admin: 11/06/23 22:44 Dose: 50 mg Quetiapine Fumarate (Quetiapine Fumarate 200 Mg Tablet) 200 mg PO BEDTIME GREG Last Admin: 11/06/23 21:29 Dose: 200 mg Allergies Allergies Allergy/AdvReac Type Severity Reaction Status Date / Time No Known Allergies Allergy Verified 10/30/23 11:18 Assessment & Plan Assessment & Plan (1) Major depression: Status: Acute Code(s): F32.9 - Major depressive disorder, single episode, unspecified (2) PTSD (post-traumatic stress disorder): Status: Acute Code(s): F43.10 - Post-traumatic stress disorder, unspecified Plan start duloxetine for depression, anxiety, and any fringe benefit for neuropathic pain related to spinal injury. start prazosin, titrate to effective dose. seroquel 100 QHS until prazosin effective. 50 mg more PRN. 10/31/2023: No changes to current plan. 10/31- increase prazosin and seroquel 11/01: increase prazosin from 5 mg QHS to 6 as of this afternoon. targeting anxiety, HTN, and nightmares/insomnia. 11/02: increase prazosin from to due to nightmares/insomnia. daytime doses reported to be helpful for anxiety. 11/03: daytime anxiety improved. nightmares continue. increase HS prazosin to 10 mg. otherwise continue current mgmt. 11/04: slept well, few/minimal nightmares. increase duloxetine to 60 mg for dep/anx. otherwise continue current mgmt. 3-day up thursday, planning to discharge thursday. 11/05: slept well, no c/o nightmares. continue current mgmt. DC thursday, upon 3-day notice expiry. 11/06 continue tx Reason for continued inpatient stay Substantial Risk for: stable for discharge Time Spent With Patient Time: Total time managing care of this patient today ____ minutes.
[2023-11-07 14:30] VITALS: BP 154/91; PULSE 105
[2023-11-07] MEDS: hydrOXYzine HCL 50 MG TABLET PO (14:37)
[2023-11-07] MEDS: Prazosin HCL 5 MG CAPSULE 10 MG PO (21:00)
[2023-11-07] MEDS: QUEtiapine Fumarate 200 MG TABLET PO (23:08)
[2023-11-07] MEDS: QUEtiapine Fumarate 50 MG TABLET PO (23:08)
[2023-11-08 09:55] VITALS: BP 141/86; PULSE 111; RESP 18; TEMP 36.8; O2SAT 98
[2023-11-08] MEDS: Prazosin HCL 1 MG CAPSULE PO ×2 (09:56→14:06)
[2023-11-08] MEDS: DULoxetine HCl 60 MG CAPSULE.DR PO (09:56)
[2023-11-08 14:03] VITALS: BP 142/83; PULSE 110
[2023-11-08] MEDS: Nicotine Polacrilex 2 MG GUM 4 MG BUCCAL ×2 (14:06→20:12)
[2023-11-08] MEDS: hydrOXYzine HCL 50 MG TABLET PO (14:06)
[2023-11-08 19:50] VITALS: BP 171/112; PULSE 119; RESP 18; TEMP 36.8; O2SAT 98
--- NOTE | 2023-11-08 20:09 | HO.PSYCHPN ---
Subjective Subjective Date of Service: 11/08/23 Reason For Visit: Major depressive disorder recurrent episode unspec Subjective Notes: Conditional Voluntary Interim History: Pt reports doing well. He reports mood is better. Peer has been instigating pt, and pt has been trying to stay away from this other pt. He denies SI/HI. No psychosis or delusions. No behavioral concern. Review of Systems Review of Systems Unremarkable Yes all other systems are reviewed and are negative Mental Status Exam Mental Status Exam Narrative: pleasant. Engaged. Hospital clothing. Fair hygiene. Eating and drinking well. Brighter and less frustrated regarding recent stressors. no SI/HI/AVH expressed. Insight and judgment fair Diagnostics Vital Signs (24Hr): Vital Signs - 24 hr 11/08/23 09:55 11/08/23 14:03 11/08/23 19:50 Temperature 98.2 F 98.2 F Pulse Rate 111 H 110 H 119 H Respiratory Rate 18 18 Blood Pressure 141/86 H 142/83 H 171/112 H Pulse Oximetry 98 98 Oxygen Delivery Method Room Air Room Air BMI result Body Mass Index 39.8 Labs 10/31/23 07:28 Medications Medications Current Medications Acetaminophen (Acetaminophen 325 Mg Tablet) 650 mg PO Q6H PRN PRN Reason: Headache/Pain Mild Scale (1-3) Last Admin: 10/31/23 09:50 Dose: 650 mg Al Hydroxide/Mg Hydroxide (Magnesium Hydrox/Alum Hydrox 30 Ml Oral.Susp) 30 ml PO Q6H PRN PRN Reason: Heartburn/Nausea Capsaicin (Capsaicin 0.025% Cream 60 Gm Tube) 1 appl TOPICAL QID PRN; Protocol PRN Reason: Pain, Moderate(Pain Scale 4-6) Last Admin: 11/02/23 18:56 Dose: 1 appl Duloxetine HCl (Duloxetine Hcl 60 Mg Capsule.Dr) 60 mg PO DAILY GREG Last Admin: 11/08/23 09:56 Dose: 60 mg Hydroxyzine HCl (Hydroxyzine Hcl 50 Mg Tablet) 50 mg PO Q6H PRN PRN Reason: Anxiety Last Admin: 11/08/23 14:06 Dose: 50 mg Magnesium Hydroxide (Milk Of Magnesia 30 Ml Oral.Susp) 30 ml PO DAILY PRN PRN Reason: Constipation Nicotine Polacrilex (Nicotine Polacrilex 2 Mg Gum) 4 mg BUCCAL Q2H PRN PRN Reason: Nicotine Cravings Last Admin: 11/08/23 14:06 Dose: 4 mg Prazosin HCl (Prazosin Hcl 1 Mg Capsule) 1 mg PO BID@0900,1500 GREG; Protocol Last Admin: 11/08/23 14:06 Dose: 1 mg Prazosin HCl (Prazosin Hcl 5 Mg Capsule) 10 mg PO BEDTIME GREG; Protocol Last Admin: 11/07/23 21:00 Dose: 10 mg Quetiapine Fumarate (Quetiapine Fumarate 50 Mg Tablet) 50 mg PO BEDTIME PRN PRN Reason: insomnia Last Admin: 11/07/23 23:08 Dose: 50 mg Quetiapine Fumarate (Quetiapine Fumarate 200 Mg Tablet) 200 mg PO BEDTIME GREG Last Admin: 11/07/23 23:08 Dose: 200 mg Allergies Allergies Allergy/AdvReac Type Severity Reaction Status Date / Time No Known Allergies Allergy Verified 10/30/23 11:18 Assessment & Plan Assessment & Plan (1) Major depression: Status: Acute Code(s): F32.9 - Major depressive disorder, single episode, unspecified (2) PTSD (post-traumatic stress disorder): Status: Acute Code(s): F43.10 - Post-traumatic stress disorder, unspecified Plan start duloxetine for depression, anxiety, and any fringe benefit for neuropathic pain related to spinal injury. start prazosin, titrate to effective dose. seroquel 100 QHS until prazosin effective. 50 mg more PRN. 10/31/2023: No changes to current plan. 10/31- increase prazosin and seroquel 11/01: increase prazosin from 5 mg QHS to 6 as of this afternoon. targeting anxiety, HTN, and nightmares/insomnia. 11/02: increase prazosin from to due to nightmares/insomnia. daytime doses reported to be helpful for anxiety. 11/03: daytime anxiety improved. nightmares continue. increase HS prazosin to 10 mg. otherwise continue current mgmt. 11/04: slept well, few/minimal nightmares. increase duloxetine to 60 mg for dep/anx. otherwise continue current mgmt. 3-day up thursday, planning to discharge thursday. 11/05: slept well, no c/o nightmares. continue current mgmt. DC thursday, upon 3-day notice expiry. 11/06 continue tx 11/07 continue tx Reason for continued inpatient stay Substantial Risk for: inability to function Time Spent With Patient Time: Total time managing care of this patient today ____ minutes.
[2023-11-08] MEDS: Acetaminophen 325 MG TABLET 650 MG PO (20:13)
[2023-11-08] MEDS: QUEtiapine Fumarate 200 MG TABLET PO (22:16)
[2023-11-08] MEDS: Prazosin HCL 5 MG CAPSULE 10 MG PO (22:16)
[2023-11-08] MEDS: QUEtiapine Fumarate 50 MG TABLET PO (23:08)
[2023-11-09 07:20] VITALS: BP 151/83; PULSE 106; RESP 18; TEMP 36.6; O2SAT 94
[2023-11-09] MEDS: DULoxetine HCl 60 MG CAPSULE.DR PO (08:47)
[2023-11-09] MEDS: Prazosin HCL 1 MG CAPSULE PO (08:47)
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
--- NOTE | 2023-11-09 11:50 | PC.NURSE ---
Patient easily engaged. Reports feeling ready for discharge. Excited to see kids today. Reports mood is stable, denies highs or lows, no reported racing thought or confusion. Denies depression or sadness, denies anxiety. Denies SI/HI plan or intent. Denies perceptual disturbances, denies A/V hallucinations, no overt psychosis or expressed delusions. Reviewed discharge paperwork reports understanding. Reviewed follow up appointments reports understanding. Reviewed discharge medications reports understanding. Crisis numbers provided to patient. All belongings taken with patient.
== END 2023-11-09 11:36 | disposition home or self-care (01) | DRG 885 ==
PROVIDERS: Admitting Provider Psychiatry & Neurology Psychiatry; PCP Nurse Practitioner Primary Care; Visit Provider Psychiatry & Neurology Psychiatry
DX: F33.9 Major depressive disorder, recurrent, unspecified (principal); R45.851 Suicidal ideations; F43.12 Post-traumatic stress disorder, chronic; F17.210 Nicotine dependence, cigarettes, uncomplicated; Z71.6 Tobacco abuse counseling; Z20.822 Contact with and (suspected) exposure to COVID-19; Z62.810 Personal history of physical and sexual abuse in childhood; Z79.899 Other long term (current) drug therapy
CPT/HCPCS: 0241U; 36415; 80053; 80061; 82607; 82746; 83036; 84439; 84443; 87635

== ENCOUNTER → 2023-10-30 10:38 | Outpatient (BNV) | payer OTHER, SELFPAY | PROVIDERS: Admitting Provider Psychiatry & Neurology Psychiatry; PCP Nurse Practitioner Primary Care; Visit Provider Internal Medicine | DX: Z02.2 Encounter for examination for admission to residential institution (principal) | CPT/HCPCS: 99429 ==

== ENCOUNTER → 2023-10-30 10:38 | Outpatient (BNV) | payer OTHER, SELFPAY | PROVIDERS: Admitting Provider Psychiatry & Neurology Psychiatry; PCP Nurse Practitioner Primary Care; Visit Provider Psychiatry & Neurology Psychiatry | DX: F33.2 Major depressive disorder, recurrent severe without psychotic features (principal); F43.11 Post-traumatic stress disorder, acute | CPT/HCPCS: 90792; 99231; 99232; 99239 ==